=== PATIENT | female | born 1995 | race Caucasian/White ===

== ENCOUNTER 2020-05-14 10:42 | Outpatient (CLI) | payer OTHER, SELFPAY ==
--- NOTE | 2020-05-14 11:00 | MR_ITS ---
WS: [id number] MRI HEAD WITH CONTRAST TECHNIQUE: Sagittal T1, T2 axial, T2 axial FLAIR, axial susceptibility weighted imaging, axial diffus ion weighted images, and coronal T2 images were obtained. Pre and post-T1 axial and post T1 coronal i mages. ADC and FSPGR images. CLINICAL INFORMATION: OPTIC NEURITIS COMPARISON: None. FINDINGS: No evidence of restricted diffusion to suggest acute ischemia. Ventricular system and basal cisterns are patent. A few small periventricular and subcortical T2 hyperintense lesions. Hazy T2 signal abnor mality about the occipital horns. Notable lesion involving the left splenium of the corpus callosum m easuring 6 mm. Left pericallosal white matter lesions. Findings are suspicious for demyelinating dise ase. A few lesions also demonstrate T1 hypointensity , in particular the corpus callosum lesion, suggestiv e of demyelinating disease. No abnormal gadolinium enhancement to indicate active disease. No signifi cant thinning of the corpus callosum. Normal optic chiasm and pituitary infundibulum. Temporal lobes and temporal formations are normal in appearance. Normal cavernous sinuses and Meckel's cave. No significant optic nerve edema. Indistinct optic nerve margins with optic nerve enhancement involving the right intraorbital segment suspicious for optic neuritis. Less prominent enhancement involving the left optic nerve. MRI not specifically p rotocoled for orbits. Normal posterior fossa. Normal vascular flow voids at the skull base. No extra-axial fluid collection s. Paranasal sinuses and mastoid air cells are well aerated. MR/MR head wo/w con [id number] IMPRESSION: 1. Mild patchy supratentorial white matter changes most compatible with demyel inating disease. 6 mm lesion involving the left splenium of the corpus callosum suggesting demyelinating disease. 2. No abnormal gadolinium enhancement to indicate active disease. 3. No significant optic nerve edema however indistinct intraorbital optic nerv e margins with enhancement more prominent on the right consistent with optic ne uritis. 4. Normal optic chiasm and pituitary infundibulum. Normal cavernous sinuses an d Meckel's cave. 5. Mild T1 hypointense lesion load suggestive of demyelinating disease. 6. No significant atrophy of the corpus callosum. 7. Recommend Neurology consultation and MRI of the cervical and thoracic spine without and with gadolinium enhancement to evaluate for additional lesions.
== END 2020-05-14 10:43 | disposition home or self-care (01) ==
LOC: RADWPI 10:56
PROVIDERS: PCP Nurse Practitioner Family; Visit Provider Ophthalmology
DX: H46.9 Unspecified optic neuritis (principal)
CPT/HCPCS: 70553; A9579

== ENCOUNTER 2020-07-30 09:53 | Outpatient (CLI) | payer OTHER, SELFPAY ==
--- NOTE | 2020-07-30 10:04 | MR_ITS ---
WS: [id number] MRI CERVICAL SPINE with and without contrast. HISTORY: MS COMPARISON: None available. Technique: Multiplanar, multisequence pre and post contrast imaging of the cervical spine. Straightening of the normal cervical lordosis. Signal within the cervical cord is normal. There are no enhancing lesions. No atrophy or enlargement of the cord or areas of ischemia or necrosis. Visualized posterior fossa is unremarkable. Craniocervical junction, C1 and C2 relationship, odontoid process and soft tissues are normal. C2-C3: Normal. C3-C4: Very shallow central disc protrusion with no stenosis. C4-C5: Normal. C5-C6: Very slight annular disc bulging. Mild deformity of the ventral thecal sac but no significant contact on the cord. No stenosis. C6-C7: Mild annular disc bulging and osteophytic ridging. Slightly greater encroachment to the LEFT b ut no stenosis. C7-T1: Normal. Paraspinal soft tissue are normal. MR/MR cervical spine wo/w [id number] IMPRESSION: 1. No demyelinating lesions or abnormal enhancement within the cervical cord. 2. No significant central or foraminal stenosis. 3. Mild annular disc bulging at C5-6 and C6-7 without cord contact.
--- NOTE | 2020-07-30 10:04 | MR_ITS ---
WS: [id number] MRI THORACIC SPINE with and without contrast. HISTORY: MS COMPARISON: None available. TECHNIQUE: Multiplanar sequences are performed in sagittal and axial planes. Imaging performed with a nd without IV contrast. Normal thoracic alignment. Disc space narrowing and desiccation with Schmorl's nodes at T10-11. No ma rrow edema or fracture. Signal within the cord is normal. There is no atrophy or enlargement of the c ord. No enhancement or T2 signal hyperintensities. T1-2: Normal. T2-3: Normal. T3-4: Normal. T4-5: Normal. T5-6: Normal. T6-7: Normal. T7-8: Normal. T8-9: Normal. T9-10: Normal. T10-11: Normal. T11-12: Normal. MR/MR thoracic spine wo/w [id number] IMPRESSION: 1. Negative MRI of thoracic spine. 2. No evidence for thoracic cord demyelinating lesions. No enhancement to sugg est active demyelination.
== END 2020-07-30 09:54 | disposition home or self-care (01) ==
LOC: RADWPI 09:56
PROVIDERS: PCP Nurse Practitioner Family; Visit Provider Internal Medicine
DX: G35 Multiple sclerosis (principal); M50.222 Other cervical disc displacement at C5-C6 level
CPT/HCPCS: 72156; 72157; A9577

== ENCOUNTER 2021-12-31 10:01 | Outpatient (CLI) | payer OTHER, SELFPAY ==
--- NOTE | 2021-12-31 10:12 | MR_ITS ---
WS: [id number] MRI HEAD WITH CONTRAST TECHNIQUE: Sagittal T1, T2 axial, T2 axial FLAIR, axial susceptibility weighted imaging, axial diffus ion weighted images, and coronal T2 images were obtained. Pre and post-T1 axial and post T1 coronal i mages. ADC and FSPGR images. CLINICAL INFORMATION: MS COMPARISON: MRI May 14, 2020 FINDINGS: A few hazy periventricular and subcortical T2 hyperintense lesions more prominent about the occipital horns unchanged since prior examination. Stable lesion involving the LEFT splenium corpus callosum. LEFT pericallosal tiny white matter lesions. No new lesions. No enhancing lesions to indicate active disease. Mild T1 hypointense lesion load. No significant callosal atrophy. No significant parenchymal volume l oss. No restricted diffusion to suggest acute ischemia. Normal posterior fossa. Normal vascular flow voids at the skull base. No extra-axial fluid collections. Paranasal sinuses and mastoid air cells well ae rated. No hemosiderin on susceptibly weighted images. Normal optic chiasm and pituitary infundibulum. Normal temporal lobes and hippocampal formations. Normal cavernous sinuses. Normal dural venous sinu ses. MR/MR head wo/w con [id number] IMPRESSION: 1. Mild patchy supratentorial white matter changes suspicious for demyelinatin g disease unchanged. Hazy lesions more prominent about the occipital horns unch anged. No evidence of disease progression. 2. No abnormal gadolinium enhancement to indicate active disease. 3. Mild T1 hypointense lesion load. No significant parenchymal volume loss. 4. No significant atrophy of the corpus callosum. 5. No other suspicious findings.
== END 2021-12-31 10:02 | disposition home or self-care (01) ==
PROVIDERS: PCP Nurse Practitioner Family; Visit Provider Internal Medicine
DX: G35 Multiple sclerosis (principal)
CPT/HCPCS: 70553

== ENCOUNTER 2025-02-18 10:51 | Outpatient (CLI) | payer BC, SELFPAY ==
--- NOTE | 2025-02-18 11:01 | MR_ITS ---
WS: [id number] MRI HEAD WITH CONTRAST TECHNIQUE: Sagittal T1, T2 axial, T2 axial FLAIR, axial susceptibility weighted imaging, axial diffusion weighted images, and coronal T2 images were obtained. Pre and post-T1 axial and post T1 coronal images. ADC and FSPGR images. CLINICAL INFORMATION: MULTIPLE SCLEROSIS COMPARISON: 2021 FINDINGS: A few hazy periventricular and subcortical T2 hyperintense lesions more prominent about the occipital horns similar in appearance to the prior examination Stable notable lesion involving the LEFT splenium corpus callosum. LEFT pericallosal tiny white matter lesions. No evidence of disease progression. No enhancing lesions to indicate active disease. Incidental enhancing venous angioma LEFT posterior frontal lobe Mild T1 hypointense lesion load. No significant callosal atrophy. No significant parenchymal volume loss. No hemosiderin on the susceptibly weighted images. Paranasal sinuses and mastoid air cells well aerated. No hemosiderin on susceptibly weighted images. Normal optic chiasm and pituitary infundibulum. Normal temporal lobes and hippocampal formations. MR/MR head wo/w con [id number] IMPRESSION: 1. Mild patchy supratentorial white matter changes compatible with history of demyelinating disease. No evidence of disease progression. 2. No abnormal gadolinium enhancement to indicate active disease. 3. Mild T1 hypointense lesion load. 4. No significant parenchymal volume loss. 5. No other significant changes
[2025-02-18] MEDS: gadobenate dimeglumine 20 mL vial IV (11:47)
== END 2025-02-18 10:52 | disposition home or self-care (01) ==
LOC: RAD 10:57
PROVIDERS: PCP Nurse Practitioner Family; Visit Provider Internal Medicine
DX: G35 Multiple sclerosis (principal); Q28.3 Other malformations of cerebral vessels
CPT/HCPCS: 70553